=== PATIENT | male | born 1955 | race Caucasian/White ===

== ENCOUNTER 2020-11-13 07:11 | Outpatient (CLI) | payer OTHER, SELFPAY ==
--- NOTE | ~2020-11-13 | US_ITS ---
EXAMINATION: US aorta [facility] DATE: 11/13/2020 07:45 INDICATION: Abdominal aortic aneurysm screening, hypertension, diabetes, hypercholesterolemia TECHNIQUE: Grayscale, color Doppler, and pulsed Doppler images of the aorta and common iliac arteries were obtained. COMPARISON: None. FINDINGS: Maximum vascular dimensions are as follows: Proximal aorta: 2.9 cm Mid aorta: 1.6 cm Distal aorta: 1.5 cm Right common iliac artery: 1.2 cm Left common iliac artery: 1.1 cm There is no evidence of abdominal aortic aneurysm. IMPRESSION: 1. No sonographic evidence of abdominal aortic aneurysm. Reviewed, dictated and finalized at location A.
== END 2020-11-13 07:12 | disposition home or self-care (01) ==
PROVIDERS: PCP Internal Medicine; Visit Provider Internal Medicine
DX: Z13.6 Encounter for screening for cardiovascular disorders (principal)
CPT/HCPCS: 76706

== ENCOUNTER 2021-03-02 00:27 | Day surgery (SDC) | payer OTHER, SELFPAY ==
[2021-02-23 13:46] VITALS: BMI 29.9
[2021-03-02 09:23] VITALS: BP 143/81; PULSE 91; RESP 18; TEMP 36.4; O2SAT 99; BMI 29.1
[2021-03-02] MEDS: LACTATED RINGERS 1,000 ML 150 ML IV CONT (09:52)
--- NOTE | 2021-03-02 09:55 | WPDANESEPPF ---
Anes - Initial Pre Proc Eval Procedure: Operation Date: 03/02/21 10:30 Proposed Procedures p Screening Colonoscopy - Eddy Gomez MD Date/Time: 03/02/21 09:55 Surgeon: Eddy Gomez MD Pre Op Diagnosis: neoplasm screening Patient Data Age: 65 Gender: M Height: 1.85 m Weight: 100.2 kg Last Vital Signs Temp 36.4 C L 03/02/21 09:23 Pulse 91 03/02/21 09:23 Resp 18 03/02/21 09:23 BP 143/81 H 03/02/21 09:23 Pulse Ox 99 03/02/21 09:23 Allergies Allergy/AdvReac Type Severity Reaction Status Date / Time No Known Allergies Allergy Verified 03/02/21 09:27 Home Medications Medication Instructions Recorded Confirmed Type aspirin 81 mg tablet,delayed 81 mg PO DAILY 09/27/19 03/02/21 History release hydrochlorothiazide 25 mg tablet 25 mg PO DAILY #90 tablet 10/03/20 03/02/21 Rx losartan 100 mg tablet 100 mg PO DAILY #90 tablet 10/03/20 03/02/21 Rx simvastatin 40 mg tablet 40 mg PO DAILY #90 tablet 10/03/20 03/02/21 Rx zolpidem 12.5 mg tablet,extended 12.5 mg PO QPM 90 Days #90 tablet 10/12/20 03/02/21 Rx release,multiphase hydrocodone 5 mg-acetaminophen 325 1 tablet PO Q12H PRN #60 tablet 02/21/21 03/02/21 Rx mg tablet trazodone 50 mg tablet 50 mg PO QHS #30 tablet 02/21/21 03/02/21 Rx Patient hx anesthesia problems: none Family hx anesthesia problems: none PMFSH Past Medical History Medical History Adjustment insomnia Blind right eye Chronic pain of both knees Chronic pain syndrome COVID-19 vaccine series completed Encounter for screening colonoscopy Essential (primary) hypertension Establishing care with new doctor, encounter for Hypertensive heart and chronic kidney disease without heart failure Knee joint effusion 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 Mixed hyperlipidemia Narcotic dependence Non compliance w medication regimen Obesity (BMI 30-39.9) Other chronic pain Primary localized osteoarthritis of both knees Right knee DJD Screening for AAA (abdominal aortic aneurysm) Stress at home Type 2 diabetes mellitus with diabetic dermatitis Vaccine counseling Vitamin D deficiency, unspecified Family History Family History Mother Family history of glaucoma Cerebrovascular accident Father Family history of lung cancer Patient's father is Social History Social History Smoking status: Smoker, status unknown Second hand tobacco smoke exposure: No Alcohol intake: current Drinks per week: 3 Alcohol use details: Social Living arrangements: alone Anes - Eval Final PreProcedure Day of Procedure 03/02/21 09:55 Patient weight: overweight Heart: regular rate and rhythm Lungs: clear to auscultation Airway: Mallampati scale class 1 Neurological: alert and oriented Last oral intake: >/= 8 hours ASA classification: III Emergent: no Anesthetic plan: proceed Anesthesia type and monitoring: general GIVS and standard monitoring Informed Consent: The patient's anesthetic plan and its attendant risks and benefits were discussed with the patient/family/POA. Questions were solicited and answers provided to the satisfaction of the patient/family/POA.
--- NOTE | 2021-03-02 10:07 | PM.HPGS ---
History of Present Illness History of Present Illness Consent: Risks, benefits, and alternatives have been discussed and questions answered. Patient agrees to proceed with procedure. Chief complaint: neoplasm screening Narrative: Kyle Garcia is a 65 year old male with last colonoscopy ~ 15 years ago. Review of Systems Constitutional: Constitutional: Denies headache(s) and Denies weakness Eyes: Eyes: Denies blurry vision ENT: Reports Normal hearing present, Denies headache(s) and Denies neck pain Cardiovascular: Cardiovascular: Denies chest pain and Denies dyspnea Respiratory: Respiratory: Denies dyspnea Gastrointestinal: Gastrointestinal: Reports no additional gastrointestinal complaints Genitourinary: Genitourinary: Denies dysuria Musculoskeletal: Musculoskeletal: Denies neck pain Integumentary/Breasts: Skin/Breast: Denies dry skin Neurologic: Reports Normal hearing present, Denies headache(s) and Denies weakness Psychiatric: Psychiatric: Denies anxiety Endocrine: Endocrine: Denies change in body appearance Hematologic/Lymphatic: Hematologic/Lymphatic: Denies easy bleeding Allergic/Immunologic: Allergic/Immunologic: Denies urticaria PMFSH Past Medical History Medical History Adjustment insomnia Blind right eye Chronic pain of both knees Chronic pain syndrome COVID-19 vaccine series completed Encounter for screening colonoscopy Essential (primary) hypertension Establishing care with new doctor, encounter for Hypertensive heart and chronic kidney disease without heart failure Knee joint effusion 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 Mixed hyperlipidemia Narcotic dependence Non compliance w medication regimen Obesity (BMI 30-39.9) Other chronic pain Primary localized osteoarthritis of both knees Right knee DJD Screening for AAA (abdominal aortic aneurysm) Stress at home Type 2 diabetes mellitus with diabetic dermatitis Vaccine counseling Vitamin D deficiency, unspecified Family History Family History Mother Family history of glaucoma Cerebrovascular accident Father Family history of lung cancer Patient's father is Social History Social History Smoking status: Smoker, status unknown Second hand tobacco smoke exposure: No Alcohol intake: current Drinks per week: 3 Alcohol use details: Social Living arrangements: alone Meds Home Medications and Allergies Home Medications Medication Instructions Recorded Confirmed Type aspirin 81 mg tablet,delayed 81 mg PO DAILY 09/27/19 03/02/21 History release hydrochlorothiazide 25 mg tablet 25 mg PO DAILY #90 tablet 10/03/20 03/02/21 Rx losartan 100 mg tablet 100 mg PO DAILY #90 tablet 10/03/20 03/02/21 Rx simvastatin 40 mg tablet 40 mg PO DAILY #90 tablet 10/03/20 03/02/21 Rx zolpidem 12.5 mg tablet,extended 12.5 mg PO QPM 90 Days #90 tablet 10/12/20 03/02/21 Rx release,multiphase hydrocodone 5 mg-acetaminophen 325 1 tablet PO Q12H PRN #60 tablet 02/21/21 03/02/21 Rx mg tablet trazodone 50 mg tablet 50 mg PO QHS #30 tablet 02/21/21 03/02/21 Rx Allergies Allergy/AdvReac Type Severity Reaction Status Date / Time No Known Allergies Allergy Verified 03/02/21 09:27 Vital Signs Vital Signs - 24 hr 03/02/21 09:23 Temperature 97.5 F L Pulse Rate 91 Respiratory Rate 18 Blood Pressure 143/81 H Pulse Oximetry 99 Exam Const: General: comfortable and no acute distress HENMT: General nose exam: Normal nares present Eyes: General: appearance normal, both eyes and all related structures Neck: Neck: no JVD Resp: Auscultation: clear to auscultation bilaterally Cardio: Rate: regular rate Rhythm: regular rhythm GI: Inspection: non-distended GI Palp: Yes Soft to palpation Skin: General skin exam:
[2021-03-02 10:25] VITALS: BP 105/64; PULSE 77; RESP 22; O2SAT 98
[2021-03-02 10:35] VITALS: BP 105/66; PULSE 77; RESP 16; O2SAT 99
[2021-03-02 10:45] VITALS: BP 122/69; PULSE 67; RESP 12; O2SAT 96
== END 2021-03-02 10:55 | disposition home or self-care (01) ==
PROVIDERS: PCP Internal Medicine; Visit Provider Internal Medicine Gastroenterology
PROC: 0DJD8ZZ Inspection of Lower Intestinal Tract, Via Natural or Artificial Opening Endoscopic (ICD-10-PCS; CPT 45378; principal; 2021-03-02 10:30)
DX: Z12.11 Encounter for screening for malignant neoplasm of colon (principal); D12.5 Benign neoplasm of sigmoid colon; K57.30 Diverticulosis of large intestine without perforation or abscess without bleeding; I13.10 Hypertensive heart and chronic kidney disease without heart failure, with stage 1 through stage 4 chronic kidney disease, or unspecified chronic kidney disease; N18.9 Chronic kidney disease, unspecified; E11.22 Type 2 diabetes mellitus with diabetic chronic kidney disease; E78.5 Hyperlipidemia, unspecified; E66.9 Obesity, unspecified; E55.9 Vitamin D deficiency, unspecified; M17.0 Bilateral primary osteoarthritis of knee; H54.40 Blindness, one eye, unspecified eye; G89.29 Other chronic pain; F17.201 Nicotine dependence, unspecified, in remission; Z79.891 Long term (current) use of opiate analgesic
CPT/HCPCS: 45385; 88305; J7120